=== PATIENT | female | born 1990 | race African-American/Black ===

== ENCOUNTER 2016-07-29 07:29 | Day surgery (SDC) | payer MEDICAID ==
[2016-07-27 10:58] LABS: HEMATOCRIT 40.5 % (36.0-47.0); HEMOGLOBIN 13.5 g/dL (12.0-15.5); MEAN CORPUSCULAR HEMOGLOBIN 29.9 pg (27.0-33.4); MEAN CORPUSCULAR HGB CONC 33.2 g/dL (32.0-36.0); MEAN CORPUSCULAR VOLUME 90 fl (80-97); RED BLOOD COUNT 4.51 10^6/uL (3.72-5.28); RED CELL DISTRIBUTION WIDTH 13.9 % (11.5-14.0); WHITE BLOOD COUNT 3.8 10^3/uL (4.0-10.5)
[2016-07-27 11:03] LABS: APPEARANCE,URINE CLEAR; BILIRUBIN,URINE NEGATIVE (NEGATIVE); GLUCOSE, URINE NEGATIVE (NEGATIVE); KETONES,URINE NEGATIVE (NEGATIVE); LEUKOCYTE ESTERASE,URINE TRACE (NEGATIVE); NITRITE,URINE NEGATIVE (NEGATIVE); PROTEIN,URINE NEGATIVE (NEGATIVE); URINE SPECIFIC GRAVITY 1.016; UROBILINOGEN,URINE NEGATIVE mg/dL (<2.0)
[~2016-07-29 07:29] MED LIST: LACTATED RINGERS 1000 ML IV PRN; LIDOCAINE 0.5% INJ-PF (5 MG/ML) 50 ML SDV SUBCUT PRN
[2016-07-29] MEDS ORDERED: FENTANYL CITRATE INJ/PF 250 MCG/5 ML AMPULE ONE (09:07)
[2016-07-29] MEDS ORDERED: PROPOFOL INJ 200 MG/20 ML VIAL IV ONE (09:08)
[2016-07-29] MEDS ORDERED: MIDAZOLAM 2 MG/2 ML INJ ONE (09:08)
[2016-07-29] MEDS ORDERED: CEFAZOLIN 1 GM/D5W RTU 1 GM/50 ML RTUPB IV ONE (09:18)
[2016-07-29] MEDS ORDERED: MEPERIDINE HCL/PF INJ 25 MG/1 ML DISP.SYRIN IV PRN (10:00)
[2016-07-29] MEDS ORDERED: FENTANYL CITRATE INJ/PF 100 MCG/2 ML AMPUL IV PRN ×3 (10:00)
[2016-07-29] MEDS ORDERED: OXYCODONE-ACETAMINOPHEN 5-325 MG TABLET PO PRN ×2 (10:00)
[2016-07-29] MEDS ORDERED: PROMETHAZINE HCL INJ 25 MG/1 ML VIAL IV PRN ×2 (10:00)
[2016-07-29] MEDS ORDERED: DIPHENHYDRAMINE HCL 50 MG/ML VIAL IV PRN (10:00)
[2016-07-29] MEDS ORDERED: MORPHINE SULFATE 10 MG/ML INJ IV PRN (10:00)
[2016-07-29] MEDS ORDERED: NEOSTIGMINE METHYLSULFATE 10 MG/10 ML VIAL ONE (10:51)
[2016-07-29] MEDS ORDERED: SUCCINYLCHOLINE CHLORIDE INJ 200 MG/10 ML VIAL ONE (10:51)
[2016-07-29] MEDS ORDERED: ONDANSETRON HCL INJ/PF 4 MG/2 ML SDV ONE (10:51)
[2016-07-29] MEDS ORDERED: VECURONIUM BROMIDE INJ 10 MG VIAL IV ONE (10:51)
[2016-07-29] MEDS ORDERED: LIDOCAINE 2% INJ-PF (20 MG/ML) 10 ML AMPUL ONE (10:51)
[2016-07-29] MEDS ORDERED: DEXAMETHASONE SOD PHOSPHATE INJ 4 MG/1 ML VIAL ONE (10:51)
[2016-07-29] MEDS ORDERED: KETOROLAC TROMETHAMINE 60 MG/2 ML SDV ONE (10:51)
[2016-07-29] MEDS ORDERED: GLYCOPYRROLATE INJ 0.4 MG/2 ML VIAL ONE (10:51)
[2016-07-29 13:17] VITALS: BP 123/77
--- NOTE | 2016-08-11 09:07 | OPERATIVE REPORT E ---
Operative Report NAME: BEN LIM : 1990 AGE: 26Y DATE OF SURGERY: 07/29/2016 ROOM: PREOPERATIVE DIAGNOSIS: Patient desiring permanent sterilization. POSTOPERATIVE DIAGNOSIS: Patient desiring permanent sterilization. PROCEDURE: Laparoscopic bilateral tubal ligation using fulguration. SURGEON: Will Spivey D.O. FIBRE CEMENT MOULDER: None. ANESTHESIA: General endotracheal anesthesia. COMPLICATIONS: None. PATHOLOGY: None. FINDINGS: Normal pelvic anatomy. PROCEDURE: Patient was taken to the operating room where she was placed in dorsal supine position upon the operating room table. She was then administered her general endotracheal anesthesia. Once this was done, she was placed in a dorsal lithotomy position. An open-sided speculum was then placed inside the patient's vagina. The cervix was easily visualized and grasped upon the anterior lip with a single-tooth tenaculum. Uterus was then sounded to 6 cm. An Dakota uterine manipulator was then placed inside the uterus without difficulty. The speculum was then removed from the patient's vagina. The surgeon then changed gloves. A 10 mm incision was made at the base of the patient's umbilicus where a 10 mm direct Optiview scope was passed through this incision into the peritoneal cavity. Once inside the peritoneal cavity, the CO2 gas was turned on. Opening pressures were noted of less than 5. Patient's abdomen was then allowed to fill with CO2 gas. A survey of the pelvis revealed normal pelvic anatomy. Using the Kleppinger device, approximately a 3 cm segment of each fallopian tube was fulgurated without difficulty and with excellent hemostasis. Following this, the ports, instruments, and gas were removed from the patient's abdomen. The fascial defect was closed using an 0 Vicryl in a [id number] suture. The skin was then closed using a 4-0 Vicryl in a subcuticular stitch. At this point in time, the surgeon then removed the instruments from the patient's vagina. Also at this point in time the procedure was terminated. All sponge and lap counts were correct x2. The patient tolerated the procedure well. The patient was taken to the recovery room in stable condition. DICTATING PHYSICIAN: Will Spivey DO [id number] Y#: [id number] ID: [id number] JOB#: [id number] ACCT: [id number] cc:Will Spivey D.O. >
== END 2016-07-29 12:20 | disposition home or self-care (01) ==
LOC: OROUT 07:29
PROVIDERS: ATTEND Obstetrics & Gynecology
PROC: 0U574ZZ Destruction of Bilateral Fallopian Tubes, Percutaneous Endoscopic Approach (ICD-10-PCS; principal; 2016-07-29 09:30)
DX: Z30.2 Encounter for sterilization (principal); Z79.899 Other long term (current) drug therapy
CPT/HCPCS: 36415; 85027; 81005; 81025; 58670; J2250; J0690; J1100; J1885; J3010; J3490 ×3; J0330; J2405; J2704; 851

== ENCOUNTER 2016-08-05 21:48 | Emergency (ER) | payer MEDICAID ==
[2016-08-06] MEDS ORDERED: CLINDAMYCIN PHOSPHATE INJ 300 MG/2 ML SDV IM ONE (00:07)
--- NOTE | 2016-08-06 00:08 | ER Document Report ---
ED Wound - General Mode of Arrival: Ambulatory Information source: Patient TRAVEL OUTSIDE OF THE [place] IN LAST 30 DAYS: No - HPI Patient complains to provider of: Wound infection Occurred: Yesterday Onset/Duration: Gradual Quality of pain: Achy Severity: None - General Chief Complaint: Incision Problem Stated Complaint: PAIN,REDNESS AT INCISION SITE Notes: Patient is a 26-year-old female that presents to the emergency department today for complaints of an infected surgical wound. Patient recently had a laparoscopic tubal ligation 8 days ago. Patient states she had a follow-up appointment this morning and was told that the wound over the umbilicus is infected and was started on antibiotics. Patient states after she left the follow-up appointment this morning, the site has began to appear worse and is draining a liquid. Patient denies any fevers. (SHIVANI JOHNSON) - Related Data Allergies/Adverse Reactions: No Known Allergies Allergy (Verified 07/22/16 14:23) Home Medications: Current Home Medications Doxycycline Hyclate 100 mg PO BID 08/05/16 [History] Past Medical History - General Information source: Patient - Social History Smoking Status: Current Every Day Smoker Cigarette use (# per day): Yes Chew tobacco use (# tins/day): No Frequency of alcohol use: Rare Drug Abuse: Marijuana Lives with: Family Family History: Reviewed & Not Pertinent Patient has suicidal ideation: No Patient has homicidal ideation: No - Medical History Medical History: Negative Past Surgical History: Reports: Hx Tubal Ligation - Immunizations Hx Diphtheria, Pertussis, Tetanus Vaccination: Yes Review of Systems - Review of Systems Constitutional: denies: Fever EENT: No symptoms reported Cardiovascular: No symptoms reported Respiratory: No symptoms reported Gastrointestinal: No symptoms reported Genitourinary: No symptoms reported Female Genitourinary: No symptoms reported Musculoskeletal: No symptoms reported Skin: See HPI, Other - infected surgical wound Hematologic/Lymphatic: No symptoms reported Neurological/Psychological: No symptoms reported -: Yes All other systems reviewed and negative Physical Exam - Vital signs Vitals: Temp Pulse Resp BP Pulse Ox 98.5 F 79 16 133/94 H 99 08/05/16 21:53 08/05/16 21:53 08/05/16 21:53 08/05/16 21:53 08/05/16 21:53 - Notes Notes: Physical Exam: General: Alert, appears well. HEENT: Normocephalic. Atraumatic. PERRL. Extraocular movements intact. Oropharynx clear. Neck: Supple. Non-tender. Respiratory: No respiratory distress. Clear and equal breath sounds bilaterally. Cardiovascular: Regular rate and rhythm. Abdominal: Non-tender. No distension. Normal Bowel Sounds. Minimal amount of white colored discharge at the umbilicus with very small opening in the surgical wound. No purulent discharge, redness, or tenderness with palpation. Back: Non-tender. No deformity or step off. Extremities: Moves all four extremities. Upper extremities: Normal inspection. Normal ROM. Lower extremities: Normal inspection. No edema. Normal ROM. Neurological: Normal cognition. AAOx4. Normal speech. Psychological: Normal affect. Normal Mood. Skin: Warm. Dry. Normal color. (SHIVANI JOHNSON) Course - Re-evaluation Re-evalutation: 08/06/16 00:32 Patient presents emergency department she had a tubal ligation last by Dr. Marinelli. She knows little bit of tenderness a little bit of drainage at the incision site of her umbilicus. She saw Dr. Arizmendi today and follow-up with antibiotics but she thinks a little bit more drainage to the area on physical exam she is well-appearing nontoxic there is small amount of serous drainage no acute infection cellulitis crepitus necrosis small opening in the wound but it is not dehisced. When ahead and gave her an IM injection of clindamycin she is on appropriate antibiotics appropriate wound care and dressing follow-up with the [facility] physician in 2-3 days and discussed reasons for ED return sooner ( YURIDIA WEN) - Vital Signs Vital signs: Temp Pulse Resp BP Pulse Ox 97.5 F 63 16 105/68 96 08/06/16 00:41 08/06/16 00:41 08/06/16 00:41 08/06/16 00:41 08/06/16 00:41 Discharge - Discharge Clinical Impression: infected tubal ligation incision site Condition: Stable Disposition: HOME, SELF-CARE Additional Instructions: Cellulitis/ wound infection You have an infection of your skin and underlying soft tissues called cellulitis. This is due to bacteria, which can enter through any break in the skin, or even through an irritated hair follicle. Untreated, cellulitis will usually worsen. Antibiotics are required. Usually, warm packs or warm soaks, and elevation of the infected area are recommended. You should start getting better within 24 to 36 hours. Most infections respond quickly to the right medication. Follow-up care is important, however, to check for abscess (boil) formation, unsuspected foreign body, or resistant infection. If you develop fever, chills, or if the area of infection is becoming rapidly more swollen or painful, call the doctor at once. Referrals: DEVIN ARIZMENDI MD [Primary Care Provider] - Follow up as needed Scribe Attestation: 08/06/16 00:23 I personally performed the services described in the documentation reviewed the documentation recorded by my scribe in my presence and it accurately and completely records my words and actions (YURIDIA WEN) Scribe Documentation - Scribe Written by Dane:: Dane Rodarte, [id number] 08/06/2016 acting as scribe for :: Jon
[2016-08-06 00:43] VITALS: BP 105/68
== END 2016-08-06 00:43 | disposition home or self-care (01) ==
LOC: ER 21:48
DX: T81.4XXA Infection following a procedure, initial encounter (principal); G89.18 Other acute postprocedural pain; F17.210 Nicotine dependence, cigarettes, uncomplicated
CPT/HCPCS: 96372; 99283

== ENCOUNTER 2020-03-30 09:11 | Emergency (ER) | payer SELFPAY ==
[2020-03-30] MEDS ORDERED: IBUPROFEN 600 MG TABLET PO ONE (10:32)
--- NOTE | 2020-03-30 10:33 | ER Document Report ---
ED Medical Screen (RME) - General Chief Complaint: Toe Injury Stated Complaint: RIGHT GREAT TOE PAIN Time Seen by Provider: 03/30/20 10:28 Mode of Arrival: Ambulatory Information source: Patient Notes: 29-year-old female presents to ED for pain and swelling to the right great toe. She does have drainage from underneath the right great toenail. She will need to be seen by another provider I will order soaks for the foot and ibuprofen at this time. It will need a thorough evaluation and possible removal of the toenail. Patient is alert oriented respirations regular nonlabored speaking in full sentences. She states she does not smoke or drink but she does use some marijuana. She not allergic to any medicines and states she does not have any past medical history. I have greeted and performed a rapid initial assessment of this patient. A comprehensive ED assessment and evaluation of the patient, analysis of test results and completion of medical decision making process will be conducted by an additional ED providers. TRAVEL OUTSIDE OF THE [place] IN LAST 30 DAYS: No - Related Data Allergies/Adverse Reactions: No Known Allergies Allergy (Verified 07/22/16 14:23) Past Medical History - Past Medical History Cardiac Medical History: Denies: Hx Coronary Artery Disease, Hx Heart Attack, Hx Hypertension Pulmonary Medical History: Denies: Hx Asthma, Hx Bronchitis, Hx COPD, Hx Pneumonia Neurological Medical History: Denies: Hx Cerebrovascular Accident, Hx Seizures Renal/ Medical History: Denies: Hx Peritoneal Dialysis Musculoskeltal Medical History: Denies Hx Arthritis Past Surgical History: Reports: Hx Tubal Ligation - Immunizations Hx Diphtheria, Pertussis, Tetanus Vaccination: Yes Physical Exam - Vital signs Vitals: Temp Pulse Resp BP Pulse Ox 97.9 F 67 16 125/76 98 03/30/20 09:16 03/30/20 09:16 03/30/20 09:16 03/30/20 09:16 03/30/20 09:16 Course - Vital Signs Vital signs: Temp Pulse Resp BP Pulse Ox 97.9 F 67 16 125/76 98 03/30/20 09:16 03/30/20 09:16 03/30/20 09:16 03/30/20 09:16 03/30/20 09:16
--- NOTE | 2020-03-30 12:12 | ER Document Report ---
ED General - General Chief Complaint: Toe Injury Stated Complaint: RIGHT GREAT TOE PAIN Time Seen by Provider: 03/30/20 10:28 Primary Care Provider: [facility] [Provider Group] - Follow up as needed Mode of Arrival: Ambulatory TRAVEL OUTSIDE OF THE [place] IN LAST 30 DAYS: No - HPI Notes: Chief complaint: Swelling and drainage right great toe History of present illness: Previously healthy 29-year-old female with no known allergies taking no regular medications presents now complaining of several days history of swelling and drainage around the nail of the right hallux. She denies trauma but says that she did have a pedicure in a nail salon about a month ago. She denies fever, chills, nausea or vomiting. She has mild discomfort and has noticed that the nail is from the nail bed. She denies any past history of similar problems. She denies any known history of diabetes or any family history of diabetes. - Related Data Allergies/Adverse Reactions: No Known Allergies Allergy (Verified 07/22/16 14:23) Past Medical History - General Information source: Patient - Social History Smoking Status: Never Smoker Frequency of alcohol use: None Drug Abuse: Marijuana Family History: Reviewed & Not Pertinent - Medical History Medical History: Negative - Past Medical History Cardiac Medical History: Denies: Hx Coronary Artery Disease, Hx Heart Attack, Hx Hypertension Pulmonary Medical History: Denies: Hx Asthma, Hx Bronchitis, Hx COPD, Hx Pneumonia Neurological Medical History: Denies: Hx Cerebrovascular Accident, Hx Seizures Renal/ Medical History: Denies: Hx Peritoneal Dialysis Musculoskeletal Medical History: Denies Hx Arthritis Past Surgical History: Reports: Hx Tubal Ligation - Immunizations Hx Diphtheria, Pertussis, Tetanus Vaccination: Yes Review of Systems - Review of Systems Notes: Constitutional: Negative for fever. HENT: Negative for sore throat. Eyes: Negative for visual changes. Cardiovascular: Negative for chest pain. Respiratory: Negative for shortness of breath. Gastrointestinal: Negative for abdominal pain, vomiting or diarrhea. Genitourinary: Negative for dysuria. Musculoskeletal: Negative for back pain. Skin: Negative for rash. Neurological: Negative for headaches, weakness or numbness. Endocrine: Denies polydipsia or polyuria. 10 point ROS negative except as marked above and in HPI. Physical Exam - Vital signs Vitals: Temp Pulse Resp BP Pulse Ox 97.9 F 67 16 125/76 98 03/30/20 09:16 03/30/20 09:16 03/30/20 09:16 03/30/20 09:16 03/30/20 09:16 - Notes Notes: GENERAL: Slender female approximately stated age appearing in no acute distress. SKIN: Good turgor no rashes. HEAD: Normocephalic atraumatic. EYES: PERRLA. EOMI. Conjunctivae and sclerae clear. NECK: Supple. No masses or thyromegaly. No adenopathy. Carotids 2+ without bruits. No JVD. BACK: Symmetrical without tenderness. CHEST: Respirations unlabored. Breath sounds clear and symmetrical. HEART: Regular rhythm. No murmur gallop or rub. ABDOMEN: Soft nontender without masses, organomegaly or rebound. Bowel sounds normally active. No bruits. EXTREMITIES: Patient has some separation of the nail of the right hallux from the nailbed and there is a small amount of yellow scaling in this area with some mild associated tenderness. Patient says there is been some drainage intermittently but I am not seeing any active drainage right now. No fluctuance is appreciated. No calf tenderness. Cap refill less than 1.5 seconds. Dorsalis pedis and posterior tibial pulses 3+ and symmetrical. NEUROLOGICAL: Alert and oriented x3. Nonfocal. PSYCHIATRIC: Appropriate affect. Course - Re-evaluation Re-evalutation: 03/30/20 12:11 I think his lady has onychomycosis involving the nail bed and she may have some bacterial superinfection. I do not think there is an obvious abscess at this time although this certainly may develop. I suggested that she soak the affected toe in warm saline solution for 15 minutes 3 times daily. She may take Tylenol or ibuprofen as needed for pain. I am going to put her on some Septra orally also griseofulvin. She can follow-up with a primary care physician or computer help desk representative. She is instructed to return here if she develops increasing pain or swelling, fever, chills, nausea or vomiting. 03/30/20 12:12 Findings, clinical impression and plan of treatment have been discussed with patient/family. Understanding of current findings and recommendations has been acknowledged by them and there is agreement regarding disposition and follow-up. - Vital Signs Vital signs: Temp Pulse Resp BP Pulse Ox 97.9 F 67 16 125/76 98 03/30/20 09:16 03/30/20 09:16 03/30/20 09:16 03/30/20 09:16 03/30/20 09:16 - Laboratory Results Critical Laboratory Results Reviewed: No Critical Results - Radiology Results Critical Radiology Results Reviewed: No Critical Results Discharge - Discharge Clinical Impression: Onychomycosis of great toe Condition: Stable Disposition: HOME, SELF-CARE Additional Instructions: Soak the affected toe in warm salt water for 15 to 20 minutes 3 times daily. You may take ibuprofen or Tylenol as needed for pain. Take prescribed oral medications. Return to the emergency department if you develop increasing pain or swelling, fever, chills, nausea or vomiting. Follow-up with referral doctor within the next 5 to 7 days. Prescriptions: Griseofulvin Ultramicrosize 250 mg PO TID 10 Days #30 tablet Sulfamethoxazole/Trimethoprim [Septra-Ds 800-160 mg Tablet] 2 tab PO BID 10 Days #40 tablet Referrals: [facility] [Provider Group] - Follow up as needed
[2020-03-30 13:19] VITALS: BP 117/75
== END 2020-03-30 13:19 | disposition home or self-care (01) ==
LOC: ER 09:11
DX: B35.1 Tinea unguium (principal); M79.674 Pain in right toe(s)
CPT/HCPCS: 82962; 99283

== ENCOUNTER 2020-04-02 17:32 | Emergency (ER) | payer SELFPAY ==
[2020-04-02 17:46] VITALS: BP 104/65
--- NOTE | 2020-04-02 18:14 | ER Document Report ---
HPI - HPI Patient complains to provider of: Toe recheck Time Seen by Provider: 04/02/20 18:00 Onset: Other - 10 days Quality of pain: Achy Context: Presents for a recheck of a nail infection that she has been dealing with for the past week and a half. Patient states she was given a prescription for an antifungal and an antibiotic but only could afford the antibiotic. Patient was wanting to have a recheck tonight. Patient denies any injury or fever. Patient states she has been soaking her toe and states that occasionally she will see drainage from under the nail. Associated Symptoms: denies: Fever Exacerbated by: Denies Relieved by: Denies Similar symptoms previously: No Recently seen / treated by doctor: Yes - ROS ROS below otherwise negative: Yes Systems Reviewed and Negative: Yes All other systems reviewed and negative - CONSTITUTIONAL Constitutional: DENIES: Fever, Chills - GASTROINTESTINAL Gastrointestinal: DENIES: Nausea - REPRODUCTIVE Reproductive: DENIES: : - MUSCULOSKELETAL Musculoskeletal: REPORTS: Extremity pain - DERM Skin Color: Normal Notes: Nail abnormality to right great toe Past Medical History - General Information source: Patient - Social History Smoking Status: Never Smoker Occupation: [employer] Family History: Reviewed & Not Pertinent - Medical History Medical History: Negative Neurological Medical History: Denies: Hx Cerebrovascular Accident, Hx Seizures Renal/ Medical History: Denies: Hx Peritoneal Dialysis Musculoskeletal Medical History: Denies Hx Arthritis Past Surgical History: Reports: Hx Tubal Ligation - Immunizations Hx Diphtheria, Pertussis, Tetanus Vaccination: Yes Vertical Provider Document - CONSTITUTIONAL Agree With Documented VS: Yes Exam Limitations: No Limitations General Appearance: WD/WN, No Apparent Distress - INFECTION CONTROL TRAVEL OUTSIDE OF THE [place] IN LAST 30 DAYS: No - HEENT HEENT: Atraumatic, Normocephalic - NECK Neck: Normal Inspection - RESPIRATORY Respiratory: No Respiratory Distress - CARDIOVASCULAR Pulses: Normal: Dorsalis pedis - MUSCULOSKELETAL/EXTREMETIES Musculoskeletal/Extremeties: MICHELLE MAHARAJ - NEURO Level of Consciousness: Awake, Alert, Appropriate Motor/Sensory: No Motor Deficit - DERM Integumentary: Warm, Dry Notes: Patient with thickening underneath the right great toenail, minimal moist discharge noted under the distal margin of the right great toe, no surrounding erythema Course - Re-evaluation Re-evalutation: 04/02/20 18:19 Culture was obtained from underneath the distal margin of the nail. Discussed w ith patient possibility of area being moist due to the frequent soaks, patient encouraged to follow-up with her primary doctor or hospitalist medical director for recheck. Patient also encouraged to get the antifungal medication filled and take as prescribed as her presentation is consistent with a fungal nail infection. - Vital Signs Vital signs: Temp Pulse Resp BP Pulse Ox 98.0 F 68 16 104/65 97 04/02/20 17:43 04/02/20 17:43 04/02/20 17:43 04/02/20 17:43 04/02/20 17:43 - Laboratory Results Critical Laboratory Results Reviewed: No Critical Results - Radiology Results Critical Radiology Results Reviewed: No Critical Results Discharge - Discharge Clinical Impression: Onychomycosis of great toe Condition: Stable Disposition: HOME, SELF-CARE Additional Instructions: Return immediately for any new or worsening symptoms Followup with your primary care provider, call tomorrow to make a followup appointment Get the antifungal medication filled and take as directed Referrals: [facility] [Provider Group] - Follow up as needed ALISA CABELLO DPM [ACTIVE STAFF] - Follow up as needed RICHIE OLIVAREZ DPM [ACTIVE STAFF] - Follow up as needed OJ CASTILLO DPM [ACTIVE STAFF] - Follow up as needed
== END 2020-04-02 18:30 | disposition home or self-care (01) ==
LOC: ER 17:32
DX: B35.1 Tinea unguium (principal); T50.906A Underdosing of unspecified drugs, medicaments and biological substances, initial encounter; Z91.120 Patient's intentional underdosing of medication regimen due to financial hardship; Z91.14 Patient's other noncompliance with medication regimen
CPT/HCPCS: 87070; 87077; 87186; 87205; 99283